=== PATIENT | female | born 1945 | race Caucasian/White ===

== ENCOUNTER 2020-05-08 08:24 | Observation (INO) ==
[2020-05-08] MEDS ORDERED: Morphine Sulfate 2 MG/ML SYRINGE IVP ONE ×2 (08:30→10:17)
[2020-05-08] MEDS ORDERED: Ondansetron 4 MG/2 ML VIAL IVP ONE (08:35)
[2020-05-08 08:58] LABS: INR 1.1; Prothrombin Time 12.8 Seconds (9.4-12.1)
[2020-05-08 08:59] LABS: Hematocrit 40.9 % (35.3-44.9); Hemoglobin 13.8 g/dL (11.5-15.4); Mean Corpuscular HGB Conc 33.7 g/dL (31.6-35.5); Mean Corpuscular Hemoglobin 29.7 pg (28.0-33.3); Mean Corpuscular Volume 88.1 fL (83.0-100.0); Mean Platelet Volume 9.4 fL (9.4-12.4); Platelet Count 251 K/mcL (140-400); Red Blood Count 4.64 M/mcL (3.82-4.97); Red Cell Distribution Width 15.5 % (11.5-14.5); White Blood Count 6.9 K/mcL (4.3-11.1)
[2020-05-08 09:10] LABS: BUN/Creatinine Ratio 14 (6-26); Blood Urea Nitrogen 12 mg/dL (8-23); Calcium 8.8 mg/dL (8.6-10.3); Carbon Dioxide 25 mEq/L (23-29); Chloride 103 mEq/L (98-107); Glucose 168 mg/dL (70-105); Osmolality,Calculated 282 (280-300); Potassium 4.3 mEq/L (3.5-5.1); Sodium 134 mEq/L (136-145); eGFR For African Americans > 60 (> 60); eGFR For Non-African Americans > 60 (> 60)
[2020-05-08] MEDS ORDERED: Ondansetron 4 MG/2 ML VIAL IVP PRN ×3 (10:55→17:13)
[2020-05-08] MEDS ORDERED: Naloxone 0.4 MG/ML INJ IVP PRN ×2 (10:55→17:13)
[2020-05-08] MEDS ORDERED: Melatonin 3 MG TABLET PO PRN ×2 (10:55→17:13)
[2020-05-08] MEDS ORDERED: Acetaminophen 325 MG TABLET PO PRN (10:55)
[2020-05-08] MEDS ORDERED: *HR* HYDROmorphone 2 MG/ML SYRINGE IVP PRN (11:00)
[2020-05-08] MEDS ORDERED: Morphine Sulfate 2 MG/ML SYRINGE IVP PRN (11:00)
[2020-05-08] MEDS ORDERED: Ipratropium/Albuterol Neb 3 ML IH PRN ×2 (11:02→17:13)
[2020-05-08] MEDS ORDERED: Ondansetron 4 MG/2 ML VIAL ONE (13:49)
[2020-05-08] MEDS ORDERED: Lidocaine -MPF 2% 2 ML VIAL ONE (13:49)
[2020-05-08] MEDS ORDERED: Tranexamic Acid 1,000 MG/10 ML VIAL ONE (13:50)
[2020-05-08] MEDS ORDERED: *HR* OxyCODONE/APAP 5/325 TABLET PO PRN (13:52)
[2020-05-08] MEDS ORDERED: *HR* HYDROmorphone 2 MG TABLET PO PRN (13:52)
[2020-05-08] MEDS ORDERED: Promethazine 6.25 MG in Water for inj. (sterile) 20 ML IVPB PRN (13:52)
[2020-05-08] MEDS ORDERED: *HR* Midazolam HCl 2 MG/2 ML VIAL ONE (13:53)
[2020-05-08] MEDS ORDERED: *HR* FentaNYL (PF) 100 MCG/2 ML VIAL ONE (13:53)
[2020-05-08] MEDS ORDERED: Vancomycin 1,000 MG VIAL ONE ×2 (14:00→14:51)
[2020-05-08] MEDS ORDERED: Ethanol\\Acetic Acid\\Na Ace\\Ben 1,000 ML IRRIG.SOLN IR ONE (14:00)
[2020-05-08] MEDS ORDERED: HYDROcodone BIT/Homatropine 5 MG TABLET PO PRN (17:13)
[2020-05-08] MEDS ORDERED: *HR* Dextrose 50 % in Water (Vial) 50 ML VIAL IVP PRN (17:13)
[2020-05-08] MEDS ORDERED: Dextrose Gel 15 GM/37.5 ML TUBE PO PRN ×2 (17:13)
[2020-05-08] MEDS ORDERED: Ringers Solution, Lactated 1,000 ML IVC SCH (17:13)
[2020-05-08] MEDS ORDERED: Sennosides 8.6 MG TABLET PO PRN (17:13)
[2020-05-08] MEDS ORDERED: MOM Conc 10 ML UD.LIQ PO PRN (17:13)
[2020-05-08] MEDS ORDERED: *HR* Promethazine 25 MG/ML VIAL IM PRN (17:13)
[2020-05-08] MEDS ORDERED: D5% in Water 1,000 ML IVC PRN (17:13)
[2020-05-08 17:34] LABS: Hematocrit 41.1 % (35.3-44.9); Hemoglobin 13.3 g/dL (11.5-15.4)
[2020-05-08] MEDS: Ascorbic Acid 500 MG TABLET PO SCH (18:27)
[2020-05-08] MEDS: Insulin LISPRO 300 UNITS/3 ML VIAL SUBQ SCH (18:27)
[2020-05-08] MEDS: Propranolol LA (24 HR) 60 MG CAP.SA.24H PO SCH (20:27)
[2020-05-08] MEDS: *HR* OxyCODONE Immed Rel 5 MG TABLET PO PRN (20:28)
[2020-05-08] MEDS ORDERED: Insulin LISPRO 300 UNITS/3 ML VIAL SUBQ SCH (21:00)
[2020-05-08] MEDS: CeFAZolin 2 GM/120 ML BAG IVPB SCH (21:51)
[2020-05-09] MEDS: CeFAZolin 2 GM/120 ML BAG IVPB SCH (05:25)
[2020-05-09 05:50] LABS: Hematocrit 38.1 % (35.3-44.9); Hemoglobin 12.8 g/dL (11.5-15.4); Mean Corpuscular HGB Conc 33.6 g/dL (31.6-35.5); Mean Corpuscular Hemoglobin 30.3 pg (28.0-33.3); Mean Corpuscular Volume 90.1 fL (83.0-100.0); Platelet Count 226 K/mcL (140-400); Red Blood Count 4.23 M/mcL (3.82-4.97); Red Cell Distribution Width 15.5 % (11.5-14.5)
[2020-05-09 05:54] LABS: White Blood Count 10.5 K/mcL (4.3-11.1)
[2020-05-09 06:13] LABS: BUN/Creatinine Ratio 13 (6-26); Blood Urea Nitrogen 11 mg/dL (8-23); Calcium 8.6 mg/dL (8.6-10.3); Carbon Dioxide 25 mEq/L (23-29); Chloride 100 mEq/L (98-107); Glucose 142 mg/dL (70-105); Osmolality,Calculated 278 (280-300); Potassium 4.1 mEq/L (3.5-5.1); Sodium 133 mEq/L (136-145); eGFR For African Americans > 60 (> 60); eGFR For Non-African Americans > 60 (> 60)
[2020-05-09 06:25] LABS: Thyroid Stimulating Hormone 1.994 mcIU/mL (0.340-5.600)
[2020-05-09 06:48] VITALS: BP 126/73
[2020-05-09] MEDS: Insulin LISPRO 300 UNITS/3 ML VIAL SUBQ SCH ×2 (07:29→11:57)
[2020-05-09] MEDS: Ascorbic Acid 500 MG TABLET PO SCH (07:38)
[2020-05-09] MEDS: Propranolol LA (24 HR) 60 MG CAP.SA.24H PO SCH (07:38)
[2020-05-09] MEDS: *HR* OxyCODONE Immed Rel 5 MG TABLET PO PRN (07:43)
[2020-05-09] MEDS ORDERED: ARIPiprazole 2 MG TABLET PO SCH ×2 (09:00)
[2020-05-09] MEDS ORDERED: Cholecalciferol (D-3) 1,000 UNIT (25MCG) TABLET PO SCH ×2 (09:00)
[2020-05-09] MEDS ORDERED: Multivit/Ca/Min/Fe/FA 1 TAB TABLET PO SCH ×3 (09:00)
[2020-05-09] MEDS ORDERED: Cyanocobalamin (B-12) 1,000 MCG TABLET PO SCH (09:00)
[2020-05-09] MEDS ORDERED: Propranolol LA (24 HR) 60 MG CAP.SA.24H PO SCH (09:00)
[2020-05-09] MEDS ORDERED: Zinc Sulfate 220 MG CAPSULE PO SCH (09:00)
[2020-05-09] MEDS ORDERED: Aspirin Enteric Coated 81 MG Tablet PO SCH (13:30)
== END 2020-05-09 14:23 | disposition home health service (06) ==
LOC: EMEROOARM 08:24 → 3NENU 08:24 → SUATTDRO 11:39 → 3NENU 13:04
PROVIDERS: ADMIT Internal Medicine; ATTEND Internal Medicine

== ENCOUNTER 2020-12-14 11:31 | Observation (INO) ==
[2020-12-14] MEDS ORDERED: *HR* OxyCODONE Immed Rel 5 MG TABLET PO PRN (12:12)
[2020-12-14] MEDS ORDERED: Famotidine 20 MG/2 ML VIAL IVP ONE (12:12)
[2020-12-14] MEDS ORDERED: Ondansetron 4 MG/2 ML VIAL IVP PRN ×2 (12:12→20:51)
[2020-12-14] MEDS ORDERED: *HR* HYDROmorphone PF 0.5 MG/0.5 ML SYRINGE IVP PRN ×2 (12:12→20:51)
[2020-12-14] MEDS ORDERED: Acetaminophen IV 1,000 MG/100 ML BAG IVPB ONE (12:14)
[2020-12-14] MEDS ORDERED: Vancomycin 1,000 MG VIAL ONE (12:16)
[2020-12-14] MEDS ORDERED: CeFAZolin Syr 2,000MG/20 ML 2,000 MG/20 ML SYRINGE IVPB ONE (12:36)
[2020-12-14] MEDS ORDERED: Gentamicin 440 MG in 0.9 % Sodium Chloride 100 ML IVPB ONE ×2 (12:37→20:51)
[2020-12-14] MEDS ORDERED: Ringers Solution, Lactated 1,000 ML IVC SCH ×3 (12:45→20:51)
[2020-12-14] MEDS ORDERED: *HR* FentaNYL (PF) 100 MCG/2 ML VIAL ONE (13:14)
[2020-12-14] MEDS ORDERED: *HR* Propofol 200 MG/20 ML VIAL IVP ONE ×4 (13:14→18:14)
[2020-12-14] MEDS ORDERED: Lidocaine -MPF 2% 5 ML VIAL ONE (13:14)
[2020-12-14] MEDS ORDERED: *HR* Rocuronium Bromide 50 MG/5 ML VIAL ONE (13:14)
[2020-12-14] MEDS ORDERED: *HR* Midazolam HCl 2 MG/2 ML VIAL ONE (13:29)
[2020-12-14] MEDS ORDERED: Povidone-Iodine 45 ML, Sodium Chloride IRRigation 1,000 ML IR ONE ×2 (13:45→20:51)
[2020-12-14] MEDS ORDERED: TOTAL JOINT MIXTURE (100ML) INTRAART ONE (13:45)
[2020-12-14] MEDS ORDERED: EPINEPHrine 1 MG/ML VIAL ONE (13:49)
[2020-12-14] MEDS ORDERED: GENTAMICIN IVPB ONE (13:54)
[2020-12-14] MEDS ORDERED: SODIUM CHLORIDE 0.9% IVPB ONE (13:54)
[2020-12-14] MEDS ORDERED: Tranexamic Acid 1,000 MG/10 ML VIAL ONE (14:47)
[2020-12-14] MEDS ORDERED: EPHEDrine 50 MG/ML VIAL ONE (16:02)
[2020-12-14] MEDS ORDERED: Ethanol\\Acetic Acid\\Na Ace\\Ben 1,000 ML IRRIG.SOLN IR ONE (16:58)
[2020-12-14] MEDS ORDERED: *HR* Labetalol 20 MG/4 ML SYRINGE IVP ONE (18:24)
[2020-12-14] MEDS ORDERED: Ondansetron 4 MG/2 ML VIAL ONE (19:08)
[2020-12-14] MEDS ORDERED: Dexamethasone Sodium Phos/PF 10 MG/ML VIAL IVP ONE (19:11)
[2020-12-14] MEDS ORDERED: Ketorolac 30 MG/ML VIAL IVP ONE (19:19)
[2020-12-14] MEDS ORDERED: *HR* HYDROmorphone (PF) 1 MG/ML SYRINGE IVP PRN (19:22)
[2020-12-14] MEDS ORDERED: Sennosides 8.6 MG TABLET PO PRN (20:51)
[2020-12-14] MEDS ORDERED: *HR* Promethazine 25 MG/ML VIAL IM PRN (20:51)
[2020-12-14] MEDS ORDERED: Ropivacaine/PF 0.5% 49.24 ML, EPINEPHrine 0.5 MG, cloNIDine 0.08 MG, Ketorolac 30 MG, 0... INTRAART ONE (20:51)
[2020-12-14] MEDS ORDERED: Naloxone 0.4 MG/ML INJ IVP PRN (20:51)
[2020-12-14] MEDS ORDERED: MOM Conc 10 ML UD.LIQ PO PRN (20:51)
[2020-12-14] MEDS: *HR* OxyCODONE Immed Rel 5 MG TABLET PO PRN (21:28)
[2020-12-14] MEDS: CeFAZolin 2 GM/120 ML BAG IVPB SCH (23:56)
[2020-12-14] MEDS: Ketorolac 15 MG/ML VIAL IVP SCH (23:56)
[2020-12-15] MEDS: *HR* OxyCODONE Immed Rel 5 MG TABLET PO PRN ×2 (02:21→06:40)
[2020-12-15] MEDS: Ketorolac 15 MG/ML VIAL IVP SCH ×4 (05:55→23:27)
[2020-12-15] MEDS: Multivit/Ca/Min/Fe/FA 1 TAB TABLET PO SCH (08:18)
[2020-12-15] MEDS: Ascorbic Acid 500 MG TABLET PO SCH ×2 (08:18→15:50)
[2020-12-15] MEDS: CeFAZolin 2 GM/120 ML BAG IVPB SCH (08:19)
[2020-12-15 08:30] LABS: Basophils % 0.3 %; Eosinophils % 0.4 %; Hematocrit 31.1 % (35.3-44.9); Hemoglobin 10.5 g/dL (11.5-15.4); Immature Granulocytes % 0.3 % (0-4); Lymphocytes % 14.8 %; Mean Corpuscular HGB Conc 33.8 g/dL (31.6-35.5); Mean Corpuscular Hemoglobin 32.3 pg (28.0-33.3); Mean Corpuscular Volume 95.7 fL (83.0-100.0); Mean Platelet Volume 9.4 fL (9.4-12.4); Monocytes # 0.9 K/mcL (0.0-1.3); Monocytes % 12.9 %; Neutrophils # 4.8 K/mcL (1.6-8.9); Platelet Count 278 K/mcL (140-400); Red Blood Count 3.25 M/mcL (3.82-4.97); Red Cell Distribution Width 12.3 % (11.5-14.5); Segmented Neutrophils % 71.3 %; White Blood Count 6.7 K/mcL (4.3-11.1)
[2020-12-15 08:49] LABS: BUN/Creatinine Ratio 10 (6-26); Blood Urea Nitrogen 10 mg/dL (8-23); Calcium 8.3 mg/dL (8.6-10.3); Carbon Dioxide 29 mEq/L (23-29); Chloride 96 mEq/L (98-107); Glucose 128 mg/dL (70-105); Osmolality,Calculated 273 (280-300); Potassium 4.2 mEq/L (3.5-5.1); Sodium 131 mEq/L (136-145); eGFR For African Americans > 60 (> 60); eGFR For Non-African Americans 56 (> 60)
[2020-12-15] MEDS ORDERED: GLUCOSAMINE HCL 500 MG PO SCH (09:00)
[2020-12-15] MEDS: Propranolol LA (24 HR) 60 MG CAP.SA.24H PO SCH (09:57)
[2020-12-15] MEDS: hydroCHLOROthiazide 25 MG TABLET PO SCH (09:57)
[2020-12-15] MEDS: ARIPiprazole 2 MG TABLET PO SCH (09:57)
[2020-12-15] MEDS: Gabapentin 100 MG CAPSULE PO SCH ×3 (09:58→19:57)
[2020-12-15] MEDS ORDERED: Aspirin Enteric Coated 81 MG Tablet PO SCH (18:20)
[2020-12-15] MEDS: CeFAZolin 2,000 MG/120 ML BAG IVPB SCH (23:26)
[2020-12-16 05:26] LABS: Basophils % 0.4 %; Eosinophils # 0.1 K/mcL (0.0-0.6); Eosinophils % 2.1 %; Hematocrit 28.8 % (35.3-44.9); Hemoglobin 9.6 g/dL (11.5-15.4); Immature Granulocytes % 0.4 % (0-4); Lymphocytes # 1.2 K/mcL (0.6-4.6); Lymphocytes % 21.1 %; Mean Corpuscular HGB Conc 33.3 g/dL (31.6-35.5); Mean Corpuscular Hemoglobin 32.5 pg (28.0-33.3); Mean Corpuscular Volume 97.6 fL (83.0-100.0); Mean Platelet Volume 10.1 fL (9.4-12.4); Monocytes # 0.7 K/mcL (0.0-1.3); Neutrophils # 3.7 K/mcL (1.6-8.9); Platelet Count 199 K/mcL (140-400); Red Blood Count 2.95 M/mcL (3.82-4.97); Red Cell Distribution Width 12.5 % (11.5-14.5); White Blood Count 5.7 K/mcL (4.3-11.1)
[2020-12-16 05:46] LABS: BUN/Creatinine Ratio 14 (6-26); Blood Urea Nitrogen 14 mg/dL (8-23); Carbon Dioxide 25 mEq/L (23-29); Chloride 98 mEq/L (98-107); Glucose 131 mg/dL (70-105); Osmolality,Calculated 274 (280-300); Potassium 3.8 mEq/L (3.5-5.1); Sodium 131 mEq/L (136-145); eGFR For African Americans > 60 (> 60); eGFR For Non-African Americans 52 (> 60)
[2020-12-16] MEDS: *HR* Enoxaparin 40 MG/0.4 ML SYRINGE SQ SCH (06:01)
[2020-12-16] MEDS: Ketorolac 15 MG/ML VIAL IVP SCH ×3 (06:01→16:42)
[2020-12-16] MEDS: CeFAZolin 2,000 MG/120 ML BAG IVPB SCH ×2 (08:39→16:43)
[2020-12-16] MEDS: ARIPiprazole 2 MG TABLET PO SCH (08:40)
[2020-12-16] MEDS: Ascorbic Acid 500 MG TABLET PO SCH ×2 (08:40→16:41)
[2020-12-16] MEDS: Gabapentin 100 MG CAPSULE PO SCH ×3 (08:40→19:59)
[2020-12-16] MEDS: Multivit/Ca/Min/Fe/FA 1 TAB TABLET PO SCH (08:40)
[2020-12-16] MEDS: hydroCHLOROthiazide 25 MG TABLET PO SCH (08:40)
[2020-12-16] MEDS: Propranolol LA (24 HR) 60 MG CAP.SA.24H PO SCH (08:40)
[2020-12-16 16:48] LABS: Influenza A PCR Negative (Negative); Influenza B PCR Negative (Negative); Resp. Syncytial Virus PCR Negative (Negative)
[2020-12-16 16:52] LABS: SARS-CoV-2 by PCR (In House) Negative (Negative)
[2020-12-17] MEDS: CeFAZolin 2,000 MG/120 ML BAG IVPB SCH ×2 (00:17→12:11)
[2020-12-17] MEDS: Ketorolac 15 MG/ML VIAL IVP SCH ×4 (00:39→12:12)
[2020-12-17] MEDS: *HR* Enoxaparin 40 MG/0.4 ML SYRINGE SQ SCH (05:53)
[2020-12-17] MEDS: Multivit/Ca/Min/Fe/FA 1 TAB TABLET PO SCH (07:58)
[2020-12-17] MEDS: ARIPiprazole 2 MG TABLET PO SCH (07:58)
[2020-12-17] MEDS: Ascorbic Acid 500 MG TABLET PO SCH (07:59)
[2020-12-17] MEDS: hydroCHLOROthiazide 25 MG TABLET PO SCH (07:59)
[2020-12-17] MEDS: Gabapentin 100 MG CAPSULE PO SCH (07:59)
[2020-12-17] MEDS: Propranolol LA (24 HR) 60 MG CAP.SA.24H PO SCH (07:59)
[2020-12-17 10:47] VITALS: BP 101/65; PULSE 81; TEMP 98.5; O2SAT 95
== END 2020-12-17 13:36 ==
LOC: 4WAOSI 11:31 → SDCAOSI 11:31 → 4WAOSI 20:36
PROVIDERS: ADMIT Orthopaedic Surgery; ATTEND Orthopaedic Surgery

== ENCOUNTER 2021-04-10 12:55 | Observation (INO) ==
[2021-04-10 14:21] LABS: Basophils % 0.1 %; Eosinophils % 0.1 %; Hematocrit 31.7 % (35.3-44.9); Hemoglobin 10.6 g/dL (11.5-15.4); Lymphocytes # 0.5 K/mcL (0.6-4.6); Lymphocytes % 3.1 %; Mean Corpuscular HGB Conc 33.4 g/dL (31.6-35.5); Mean Corpuscular Hemoglobin 27.6 pg (28.0-33.3); Mean Corpuscular Volume 82.6 fL (83.0-100.0); Mean Platelet Volume 10.5 fL (9.4-12.4); Monocytes # 1.3 K/mcL (0.0-1.3); Monocytes % 8.6 %; Neutrophils # 13.6 K/mcL (1.6-8.9); Platelet Count 254 K/mcL (140-400); Red Blood Count 3.84 M/mcL (3.82-4.97); Red Cell Distribution Width 15.3 % (11.5-14.5); Segmented Neutrophils % 87.1 %; White Blood Count 15.6 K/mcL (4.3-11.1)
[2021-04-10 14:38] LABS: Albumin 3.9 g/dL (3.5-5.7); Albumin/Globulin Ratio 1.1 (1.1-2.2); Bilirubin,Total 1.7 mg/dL (0.3-1.0); Calcium 8.5 mg/dL (8.6-10.3); Globulin 3.4 g/dL (2.4-3.5); Potassium 3.8 mEq/L (3.5-5.1); Total Protein 7.3 g/dL (6.4-8.9); Troponin I 0.06 ng/mL (< 0.04)
[2021-04-10 15:56] LABS: BUN/Creatinine Ratio 16 (6-26); Blood Urea Nitrogen 16 mg/dL (8-23); Calcium 6.2 mg/dL (8.6-10.3); Carbon Dioxide 17 mEq/L (23-29); Chloride 103 mEq/L (98-107); Glucose 139 mg/dL (70-105); Osmolality,Calculated 267 (280-300); Sodium 127 mEq/L (136-145); eGFR For African Americans > 60 (> 60); eGFR For Non-African Americans 55 (> 60)
[2021-04-10] MEDS ORDERED: Isovue-370 500 ML BOTTLE IVP ONE (16:00)
[2021-04-10] MEDS ORDERED: Aspirin 325 MG TABLET PO ONE (16:01)
[2021-04-10 16:02] LABS: Influenza A PCR Negative (Negative); Influenza B PCR Negative (Negative); Resp. Syncytial Virus PCR Negative (Negative)
[2021-04-10 16:03] LABS: SARS-CoV-2 by PCR (In House) Negative (Negative)
[2021-04-10 16:03] LABS: Bacteria,Urine Few per hpf (None-Few); Bilirubin,Urine Negative (Negative); Blood,Urine Small (Negative); Clarity,Urine Turbid (Clear); Color,Urine Yellow (Yellow); Glucose,Urine (UA) Normal (Normal); Ketones,Urine Negative (Negative); Leukocyte Esterase,Urine Large (Negative); Mucus,Urine Few per lpf (None-Few); Nitrite,Urine Negative (Negative); Protein,Urine 200 mg/dL (Neg-Trace); Squamous Epithelial Cell,Urine Few per hpf (None-Few); WBC,Urine TNTC per hpf (0-3)
[2021-04-10 16:08] LABS: Thyroid Stimulating Hormone 3.336 mcIU/mL (0.340-5.600)
[2021-04-10] MEDS ORDERED: Piperacillin/Tazobactam 3.375 GM in 0.9 % Sodium Chloride Mini Bag 100 ML IVPB ONE (16:19)
[2021-04-10] MEDS ORDERED: Naloxone 0.4 MG/ML INJ IVP PRN (19:18)
[2021-04-10] MEDS ORDERED: Dextrose Gel 15 GM/37.5 ML TUBE PO PRN ×2 (19:27)
[2021-04-10] MEDS ORDERED: D5% in Water 1,000 ML IVC PRN (19:27)
[2021-04-10] MEDS ORDERED: *HR* Dextrose 50 % in Water (Syg) 50 ML SYRINGE IVP PRN (19:27)
[2021-04-10] MEDS: predniSONE 20 MG TABLET PO SCH (20:15)
[2021-04-10] MEDS: Azithromycin 500 MG in 0.9 % Sodium Chloride 250 ML IVPB SCH (20:16)
[2021-04-10 20:52] LABS: Calcium 8.7 mg/dL (8.6-10.3); Magnesium 1.9 mg/dL (1.6-2.6); Potassium 3.5 mEq/L (3.5-5.1); Troponin I 0.03 ng/mL (< 0.04)
[2021-04-10 22:36] LABS: Adenovirus Not Detected (Not Detect); Coronavirus 229E Not Detected (Not Detect); Coronavirus HKU1 Not Detected (Not Detect); Coronavirus NL63 Not Detected (Not Detect); Coronavirus OC43 Not Detected (Not Detect); SARS-CoV-2 Not Detected (Not Detect)
[2021-04-10 22:37] LABS: Bordetella Pertussis Not Detected (Not Detect); Chlamydophila pneumoniae Not Detected (Not Detect); Human Metapneumovirus Not Detected (Not Detect); Human Rhinovirus/Enterovirus Not Detected (Not Detect); Influenza A Subtype 2009 H1 Not Detected (Not Detect); Influenza B Not Detected (Not Detect); Mycoplasma pneumoniae Not Detected (Not Detect); Parainfluenza Virus 1 Not Detected (Not Detect); Parainfluenza Virus 2 Not Detected (Not Detect); Parainfluenza Virus 3 Not Detected (Not Detect); Parainfluenza Virus 4 Not Detected (Not Detect); Respiratory Syncytial Virus Not Detected (Not Detect)
[2021-04-11] MEDS ORDERED: cefTRIAXone 1,000 MG in 0.9 % Sodium Chloride Mini Bag 100 ML IVP SCH
[2021-04-11 01:59] LABS: Basophils % 0.2 %; Hematocrit 30.6 % (35.3-44.9); Hemoglobin 10.2 g/dL (11.5-15.4); Immature Granulocytes % 0.9 % (0-4); Lymphocytes # 0.6 K/mcL (0.6-4.6); Lymphocytes % 4.7 %; Mean Corpuscular HGB Conc 33.3 g/dL (31.6-35.5); Mean Corpuscular Hemoglobin 27.9 pg (28.0-33.3); Mean Corpuscular Volume 83.6 fL (83.0-100.0); Mean Platelet Volume 10.3 fL (9.4-12.4); Monocytes # 0.7 K/mcL (0.0-1.3); Monocytes % 5.6 %; Neutrophils # 10.8 K/mcL (1.6-8.9); Platelet Count 225 K/mcL (140-400); Red Blood Count 3.66 M/mcL (3.82-4.97); Red Cell Distribution Width 15.3 % (11.5-14.5); Segmented Neutrophils % 88.6 %; White Blood Count 12.2 K/mcL (4.3-11.1)
[2021-04-11 02:18] LABS: Calcium 8.3 mg/dL (8.6-10.3); Chol/HDL Ratio 4.2 (0-4.9); Potassium 3.8 mEq/L (3.5-5.1)
[2021-04-11] MEDS: *HR* Heparin 5,000 UNIT/ML VIAL SQ SCH ×2 (05:13→16:18)
[2021-04-11] MEDS: Ipratropium/Albuterol Neb 3 ML IH SCH ×5 (08:23→23:53)
[2021-04-11] MEDS: predniSONE 20 MG TABLET PO SCH (09:02)
[2021-04-11] MEDS: Insulin LISPRO 300 UNITS/3 ML VIAL SUBQ SCH ×3 (09:04→16:18)
[2021-04-11] MEDS ORDERED: Ipratropium/Albuterol Neb 3 ML IH SCH (10:00)
[2021-04-11] MEDS ORDERED: cefTRIAXone 1,000 MG in 0.9 % Sodium Chloride Mini Bag 100 ML IVPB ONE (10:57)
[2021-04-11] MEDS ORDERED: polyethylene glycoL 3350 17 GM POWD.PACK PO PRN (11:18)
[2021-04-11] MEDS: Ondansetron 4 MG/2 ML VIAL IVP PRN (12:43)
[2021-04-11] MEDS ORDERED: *HR* Promethazine 25 MG/ML VIAL IM ONE (14:02)
[2021-04-11] MEDS: carvediloL 6.25 MG TABLET PO SCH (19:18)
[2021-04-11] MEDS: Azithromycin 500 MG in 0.9 % Sodium Chloride 250 ML IVPB SCH (19:54)
[2021-04-12] MEDS ORDERED: *HR* HYDROcodone/Acet 10/325 mg TABLET PO ONE (04:07)
[2021-04-12] MEDS: Ipratropium/Albuterol Neb 3 ML IH SCH ×6 (04:09→23:48)
[2021-04-12] MEDS: *HR* Heparin 5,000 UNIT/ML VIAL SQ SCH ×2 (04:13→17:25)
[2021-04-12] MEDS: cefTRIAXone 2,000 MG in 0.9 % Sodium Chloride Mini Bag 100 ML IVPB SCH (07:48)
[2021-04-12] MEDS: predniSONE 20 MG TABLET PO SCH (07:48)
[2021-04-12] MEDS: carvediloL 6.25 MG TABLET PO SCH ×2 (07:49→17:26)
[2021-04-12] MEDS: Aspirin Enteric Coated 81 MG Tablet PO SCH (07:49)
[2021-04-12] MEDS: Insulin LISPRO 300 UNITS/3 ML VIAL SUBQ SCH ×3 (07:59→17:25)
[2021-04-12 08:40] LABS: Basophils % 0.2 %; Eosinophils % 0.1 %; Hematocrit 31.9 % (35.3-44.9); Hemoglobin 10.6 g/dL (11.5-15.4); Immature Granulocytes % 0.8 % (0-4); Lymphocytes # 0.9 K/mcL (0.6-4.6); Lymphocytes % 4.9 %; Mean Corpuscular HGB Conc 33.2 g/dL (31.6-35.5); Mean Corpuscular Hemoglobin 27.3 pg (28.0-33.3); Mean Corpuscular Volume 82.2 fL (83.0-100.0); Mean Platelet Volume 10.5 fL (9.4-12.4); Monocytes % 12.2 %; Neutrophils # 15.1 K/mcL (1.6-8.9); Platelet Count 282 K/mcL (140-400); Red Blood Count 3.88 M/mcL (3.82-4.97); Red Cell Distribution Width 15.2 % (11.5-14.5); Segmented Neutrophils % 81.8 %
[2021-04-12 08:41] LABS: Monocytes # 2.2 K/mcL (0.0-1.3); White Blood Count 18.4 K/mcL (4.3-11.1)
[2021-04-12 09:44] LABS: BUN/Creatinine Ratio 21 (6-26); Blood Urea Nitrogen 21 mg/dL (8-23); Carbon Dioxide 24 mEq/L (23-29); Chloride 91 mEq/L (98-107); Glucose 187 mg/dL (70-105); Osmolality,Calculated 272 (280-300); Potassium 3.7 mEq/L (3.5-5.1); Sodium 127 mEq/L (136-145); eGFR For African Americans > 60 (> 60); eGFR For Non-African Americans 53 (> 60)
[2021-04-12] MEDS: Azithromycin 500 MG in 0.9 % Sodium Chloride 250 ML IVPB SCH (19:59)
[2021-04-13] MEDS: Ipratropium/Albuterol Neb 3 ML IH SCH ×5 (04:26→20:41)
[2021-04-13] MEDS: *HR* Heparin 5,000 UNIT/ML VIAL SQ SCH ×3 (05:22→21:40)
[2021-04-13 05:56] LABS: Basophils % 0.1 %; Eosinophils % 0.1 %; Hematocrit 30.6 % (35.3-44.9); Hemoglobin 10.2 g/dL (11.5-15.4); Immature Granulocytes % 0.8 % (0-4); Lymphocytes # 1.5 K/mcL (0.6-4.6); Lymphocytes % 10.3 %; Mean Corpuscular HGB Conc 33.3 g/dL (31.6-35.5); Mean Corpuscular Hemoglobin 27.6 pg (28.0-33.3); Mean Corpuscular Volume 82.9 fL (83.0-100.0); Monocytes # 1.8 K/mcL (0.0-1.3); Monocytes % 12.6 %; Neutrophils # 11.1 K/mcL (1.6-8.9); Platelet Count 323 K/mcL (140-400); Red Blood Count 3.69 M/mcL (3.82-4.97); Red Cell Distribution Width 15.2 % (11.5-14.5); Segmented Neutrophils % 76.1 %; White Blood Count 14.6 K/mcL (4.3-11.1)
[2021-04-13 06:14] LABS: Calcium 8.9 mg/dL (8.6-10.3); Potassium 3.4 mEq/L (3.5-5.1)
[2021-04-13] MEDS ORDERED: *HR* Metoprolol 5 MG/5 ML VIAL IVP ONE (06:17)
[2021-04-13] MEDS: Ondansetron 4 MG/2 ML VIAL IVP PRN (08:14)
[2021-04-13] MEDS: Insulin LISPRO 300 UNITS/3 ML VIAL SUBQ SCH ×3 (09:01→16:33)
[2021-04-13] MEDS ORDERED: *HR* HYDROcodone/Acet 10/325 mg TABLET PO ONE ×2 (09:20→17:22)
[2021-04-13] MEDS: Aspirin Enteric Coated 81 MG Tablet PO SCH (10:59)
[2021-04-13] MEDS: predniSONE 20 MG TABLET PO SCH (10:59)
[2021-04-13] MEDS: carvediloL 6.25 MG TABLET PO SCH ×2 (10:59→16:34)
[2021-04-13] MEDS: hydroCHLOROthiazide 25 MG TABLET PO SCH (11:00)
[2021-04-13] MEDS: cefTRIAXone 2,000 MG in 0.9 % Sodium Chloride Mini Bag 100 ML IVPB SCH (11:00)
[2021-04-13] MEDS: Ringers Solution, Lactated 1,000 ML IVC SCH ×2 (14:09→21:40)
[2021-04-13] MEDS: Azithromycin 500 MG in 0.9 % Sodium Chloride 250 ML IVPB SCH (21:39)
[2021-04-14] MEDS: Ipratropium/Albuterol Neb 3 ML IH SCH ×4 (00:19→11:32)
[2021-04-14 02:12] LABS: Basophils % 0.3 %; Hematocrit 29.8 % (35.3-44.9); Hemoglobin 9.8 g/dL (11.5-15.4); Immature Granulocytes % 1.4 % (0-4); Lymphocytes # 1.1 K/mcL (0.6-4.6); Lymphocytes % 10.4 %; Mean Corpuscular HGB Conc 32.9 g/dL (31.6-35.5); Mean Corpuscular Hemoglobin 27.4 pg (28.0-33.3); Mean Corpuscular Volume 83.2 fL (83.0-100.0); Mean Platelet Volume 10.5 fL (9.4-12.4); Monocytes # 0.9 K/mcL (0.0-1.3); Monocytes % 8.4 %; Neutrophils # 8.6 K/mcL (1.6-8.9); Platelet Count 322 K/mcL (140-400); Red Blood Count 3.58 M/mcL (3.82-4.97); Red Cell Distribution Width 15.4 % (11.5-14.5); Segmented Neutrophils % 79.5 %; White Blood Count 10.8 K/mcL (4.3-11.1)
[2021-04-14 02:31] LABS: BUN/Creatinine Ratio 18 (6-26); Blood Urea Nitrogen 19 mg/dL (8-23); Calcium 8.4 mg/dL (8.6-10.3); Carbon Dioxide 26 mEq/L (23-29); Chloride 93 mEq/L (98-107); Glucose 145 mg/dL (70-105); Osmolality,Calculated 277 (280-300); Potassium 3.6 mEq/L (3.5-5.1); Sodium 131 mEq/L (136-145); eGFR For African Americans > 60 (> 60); eGFR For Non-African Americans 52 (> 60)
[2021-04-14] MEDS: *HR* Heparin 5,000 UNIT/ML VIAL SQ SCH (04:53)
[2021-04-14 06:55] VITALS: O2SAT 92
[2021-04-14] MEDS: Ringers Solution, Lactated 1,000 ML IVC SCH (07:12)
[2021-04-14] MEDS: Insulin LISPRO 300 UNITS/3 ML VIAL SUBQ SCH ×2 (07:15→11:48)
[2021-04-14] MEDS: hydroCHLOROthiazide 25 MG TABLET PO SCH (08:44)
[2021-04-14] MEDS: carvediloL 6.25 MG TABLET PO SCH (08:46)
[2021-04-14] MEDS: predniSONE 20 MG TABLET PO SCH (08:47)
[2021-04-14] MEDS: Aspirin Enteric Coated 81 MG Tablet PO SCH (08:48)
[2021-04-14] MEDS: cefTRIAXone 2,000 MG in 0.9 % Sodium Chloride Mini Bag 100 ML IVPB SCH (08:48)
[2021-04-14] MEDS ORDERED: ARIPiprazole 2 MG TABLET PO SCH (09:00)
[2021-04-14 11:12] VITALS: BP 151/83; PULSE 96; TEMP 98.4
== END 2021-04-14 13:08 | disposition home health service (06) ==
LOC: EMEROOARM 12:55 → 2ANU 12:55 → SUATTDRO 18:05 → 2ANU 19:37
PROVIDERS: ADMIT Student in an Organized Health Care Education/Training Program; ATTEND Internal Medicine